=== PATIENT | male | born 1970 | race Caucasian/White ===

== ENCOUNTER 2018-11-11 13:31 | Emergency (ER) | payer SELFPAY ==
[~2018-11-11] VITALS: Ht 182.9 cm; Wt 83.9 kg
[2018-11-11 13:40] VITALS: BP 140/81
== END 2018-11-11 13:54 | disposition left against medical advice (07) ==
LOC: ER 13:31
DX: Z02.89 Encounter for other administrative examinations (principal); Z53.21 Procedure and treatment not carried out due to patient leaving prior to being seen by health care provider